=== PATIENT | female | born 1980 | race American Indian/Alaskan Native ===

== ENCOUNTER 2017-02-25 15:39 | Emergency (ER) | payer MEDICAID ==
[2017-02-25 16:40] VITALS: BP 114/75
[2017-02-25] MEDS ORDERED: MOTRIN PO ONE (16:44)
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
== END 2017-02-25 20:27 | disposition home or self-care (01) ==
LOC: ED 15:39
DX: S39.012A Strain of muscle, fascia and tendon of lower back, initial encounter (principal); S16.1XXA Strain of muscle, fascia and tendon at neck level, initial encounter; V89.2XXA Person injured in unspecified motor-vehicle accident, traffic, initial encounter; Y93.89 Activity, other specified; Y92.89 Other specified places as the place of occurrence of the external cause; Y99.8 Other external cause status
CPT/HCPCS: 72040; 72100; 99283

== ENCOUNTER 2017-07-06 15:24 | Emergency (ER) | payer OTHER, MEDICAID ==
[2017-07-06] MEDS ORDERED: TORADOL IM ONE (17:37)
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
--- NOTE | 2017-07-06 20:00 | XRay Report ---
FINAL REPORT EXAM: XR SPINE LUMBOSACRAL 2-3V HISTORY: low back pain TECHNIQUE: AP, lateral and coned-down views of lumbar spine. PRIORS: 25 February 2017. FINDINGS: No loss of height or gross malalignment of lumbar vertebral bodies. No obvious osseous destruction. Lumbar disc spaces maintained. Paraspinal soft tissues grossly unremarkable. IMPRESSION: 1. No acute or significant osseous abnormality.
--- NOTE | 2017-07-06 20:01 | XRay Report ---
FINAL REPORT EXAM: XR SPINE CERVICAL 2-3V HISTORY: neck pain TECHNIQUE: AP, lateral and odontoid views of cervical spine. PRIORS: 25 February 2017. FINDINGS: No loss of height or gross malalignment of cervical vertebral bodies. No obvious osseous destruction. Cervical disc spaces maintained. Prevertebral soft tissues grossly unremarkable. IMPRESSION: 1. No acute or significant osseous abnormality.
[2017-07-06 20:18] VITALS: BP 128/67
== END 2017-07-06 20:19 | disposition home or self-care (01) ==
LOC: ED 15:24
DX: M54.2 Cervicalgia (principal); M54.5 Low back pain
CPT/HCPCS: 72040; 72100; 96372; 99283; J1885